=== PATIENT | female | born 1990 | race Caucasian/White ===

== ENCOUNTER 2025-02-01 15:54 | Emergency (ER) | payer OTHER ==
[~2025-02-01] VITALS: Ht 167.6 cm; Wt 122.5 kg
[2025-02-01] MEDS ORDERED: HYDROmorphone Hydrochloride 1 MG/ML SYR IM ONE (16:30)
== END 2025-02-01 16:44 | disposition home or self-care (01) ==
LOC: ED 15:54
DX: O26.891 Other specified pregnancy related conditions, first trimester (principal); R10.30 Lower abdominal pain, unspecified; I10 Essential (primary) hypertension; Z3A.01 Less than 8 weeks gestation of pregnancy; Z88.8 Allergy status to other drugs, medicaments and biological substances